=== PATIENT | female | born 1945 | race Hispanic/Latino ===

== ENCOUNTER → 2018-10-26 | Day surgery (SDC) | payer OTHER ==
[2018-10-19 11:53] LABS: BASOPHILS % 0.4 % (0.0-1.0); EOSINOPHILS # (AUTO) 0.1 (0.0-0.4); EOSINOPHILS % 1.5 % (0.0-6.0); HEMATOCRIT 39.7 % (34.2-44.1); HEMOGLOBIN 11.5 g/dL (12.0-16.0); LYMPHOCYTES # (AUTO) 1.9 (1.0-3.2); MEAN CORPUSCULAR HEMOGLOBIN 22.2 pg (28-32); MEAN CORPUSCULAR VOLUME 76.8 fL (81-99); MONOCYTES # (AUTO) 0.5 (0.2-0.8); NEUTROPHILS # (AUTO) 5.4 (2.1-6.9); NEUTROPHILS % 67.7 % (38.7-80.0); PLATELET COUNT 311 x10e3/uL (140-360); RED BLOOD COUNT 5.17 x10e6/uL (3.6-5.1); RED CELL DISTRIBUTION WIDTH 15.9 % (11.7-14.4)
[~2018-10-26] MED LIST: ASPIR 8181 MG PO; ASPIRIN325 MG PO; ASPIRIN81 MG PO; ATORVASTATIN CA20 MG PO; COMBIGAN EYE DRO5 ML OP; DORZOLAMIDE HCL10 ML OP; FENTANYL CITRATE/PF 100MCG/2 ML INJ ONE; LANTUS 3ML100 UNITS/ INJ; LEVEMIR100 UNIT/1 SQ; LUMIGAN2.5 M1 OP; METFORMIN HCL500 MG PO; MIDAZOLAM HCL 2 MG/2 ML VIAL ONE; OMEPRAZOLE20 MG PO; PROPOFOL IV EMULSION 10 MG/ML 50 ML VIAL ONE; RHOPRESSA OS
--- OUTSIDE RECORDS SUMMARY | 2018-10-26 06:28 | XMS REPORT ---
Author Author [facility] Address Unknown Phone Unavailable Care Team Providers Care Supervisor Stave Cutting Name Role Phone TONE PITTMAN Unavailable Unavailable Problems This patient has no known problems. Allergies, Adverse Reactions, Alerts This patient has no known allergies or adverse reactions. Medications This patient has no known medications. Results Test Description Test Time Test Comments Text Results Atomic Results Result Comments KNEE RIGHT 1-2 VIEWS [place] [address] Patient Name: JAMISON CAM MR #: [id number] : 1945 Age/Sex: 71/F Req #: [id number] Adm Physician: Ordered by: TONE PITTMAN MD Report #: [id number] Location: OR Room/Bed: Procedure: [id number] DX/KNEE RIGHT 1-2 VIEWS Exam Date: 08/01/17 Exam Time: 1030 REPORT STATUS: Signed PROCEDURE: X-RAY RIGHT KNEE, ONE OR TWO VIEWS COMPARISON: None. INDICATIONS: POST OP KNEE FINDINGS: See conclusion. CONCLUSION: Status post total right knee replacement with surrounding soft tissue swelling, air and danae consistent with recent surgery. No acute fractures. Jennie Isaac D.O. Dictated by: Jennie Isaac D.O. on 08/01/2017 at 12:02 Electronically approved by: Jennie Isaac D.O. on 08/01/2017 at 12:02 Dictated By: JENNIE ISAAC DO 01 Transcribed By: POONAM on 08/01/171201 COPY TO: TONE PITTMAN MD CHEST [address] [facility] [address] [place] [address] Patient Name: JAMISON CAM MR #: [id number] : 1945 Age/Sex: 71/F Req #: [id number] Adm Physician: Ordered by: TONE PITTMAN MD Report #: [id number] Location: OR Room/Bed: Procedure: [id number] DX/CHEST 2 VIEWS Exam Date: 07/29/17 Exam Time: 1005 REPORT STATUS: Signed PROCEDURE: CHEST 2 VIEWS TECHNIQUE: PA lateral chest INDICATION: Preoperative evaluation for right knee surgery COMPARISON: None. FINDINGS: Lungs are clear and symmetrically inflated. No pleural effusions. Enlarged cardiac silhouette tortuous thoracic aorta. Intact skeleton with degenerative disc disease. Cervical fusion hardware partially imaged. CONCLUSION: Mild cardiomegaly without acute abnormality. Dictated by: Waqar Turner M.D. on 07/29/2017 at 10:32 Electronically approved by: Waqar Turner M.D. on 07/29/2017 at 10:32 Dictated By: WAQAR TURNER MD 1032 Transcribed By: POONAM on 07/29/17 1032 COPY TO: TONE PITTMAN MD
[2018-10-26 09:20] VITALS: BP 126/70
== END | disposition home or self-care (01) ==
LOC: OR 06:25
PROVIDERS: ATTEND Internal Medicine Gastroenterology
DX: D50.9 Iron deficiency anemia, unspecified (principal); K29.70 Gastritis, unspecified, without bleeding; K57.30 Diverticulosis of large intestine without perforation or abscess without bleeding; K64.8 Other hemorrhoids; Z71.3 Dietary counseling and surveillance; E66.9 Obesity, unspecified; H54.61 Unqualified visual loss, right eye, normal vision left eye; E78.00 Pure hypercholesterolemia, unspecified; E11.9 Type 2 diabetes mellitus without complications; K21.9 Gastro-esophageal reflux disease without esophagitis; I25.10 Atherosclerotic heart disease of native coronary artery without angina pectoris; F41.9 Anxiety disorder, unspecified; Z88.6 Allergy status to analgesic agent; Z88.4 Allergy status to anesthetic agent; Z01.810 Encounter for preprocedural cardiovascular examination; Z01.812 Encounter for preprocedural laboratory examination; Z79.82 Long term (current) use of aspirin; Z79.4 Long term (current) use of insulin; Z68.34 Body mass index [BMI] 34.0-34.9, adult
CPT/HCPCS: 36415 ×2; 43239; 45378; 82948; 85025; 88304; 88305; 88312; 93005; J2250